=== PATIENT | female | born 1985 | race Caucasian/White ===

== ENCOUNTER 2021-11-14 14:46 | Inpatient (IN) ==
[2021-11-14] MEDS ORDERED: ONDANSETRON 4 MG/2 ML VIAL IV STA (15:20)
[2021-11-14] MEDS ORDERED: HYDROmorphone 1 MG/1 ML SYRINGE IV STA (15:20)
[2021-11-14] MEDS ORDERED: ONDANSETRON 4 MG/2 ML VIAL ONE ×2 (15:21→17:54)
[2021-11-14] MEDS ORDERED: HYDROmorphone 1 MG/1 ML SYRINGE ONE (15:22)
[2021-11-14] MEDS ORDERED: SODIUM CHLORIDE 0.9% 1,000 ML IV STA (15:57)
[2021-11-14] MEDS ORDERED: GLUCAGON 1 MG VIAL IM PRN ×2 (16:34→17:28)
[2021-11-14] MEDS ORDERED: DEXTROSE 10% 250 ML BAG IV PRN (16:34)
[2021-11-14 16:50] LABS: Bacteria,Urine Occasional /HPF (Few); Mucus,Urine Occasional /LPF (Occasional); RBC,Urine 11 /HPF (0-4); Squamous Epithelial Cell,Urine Occasional /HPF (0-10)
[2021-11-14 16:53] LABS: Bilirubin,Urine Negative (Negative); Blood, Urine Moderate mg/dL (Negative); Glucose,Urine (UA) 500 mg/dL (Negative); Ketones,Urine >=160 mg/dL (Negative); Nitrite,Urine Negative (Negative); Protein,Urine Negative (Negative); Urine Appearance Clear (Clear); Urine Color Yellow (Yellow); Urine Urobilinogen 0.2 eU/dL (<2.0)
[2021-11-14 17:05] LABS: Basophils # 0.1 10*3/uL (0.0-0.2); Basophils % 0.8 % (0.0-0.8); Hematocrit 40.1 VOL% (35.7-47.0); Immature Granulocytes % 0.5 %; Immature Granulocytes Absolute 0.07 #; Lymphocytes # 0.8 10*3/uL (1.4-4.0); Lymphocytes % 5.5 % (21.3-54.2); Mean Corpuscular HGB Conc 32.4 GM/DL (32-36); Mean Corpuscular Volume 87.9 FL (87-102); Monocytes # 0.4 10*3/uL (0.11-0.8); Monocytes % 3.1 % (1.7-12.7); Neutrophils % 90.1 % (38.7-73.9); Platelet Count 291 T/CUMM (130-400); Red Blood Count 4.56 MC/CUMM (3.8-5.5); Red Cell Distribution Width 13.2 % (9.3-17.3); White Blood Count 13.9 T/CUMM (4-12)
[2021-11-14] MEDS ORDERED: cefTRIAXone 1,000 MG in SODIUM CHLORIDE 0.9% 100 ML IV ONE (17:15)
[2021-11-14] MEDS ORDERED: KETOROLAC 30 MG/1 ML VIAL IV PRN (17:24)
[2021-11-14 17:27] LABS: Calcium 8.4 MG/DL (8.5-10.1); Osmolality,Calculated 282.4 MOS/KG (273-304); Potassium 4.1 MMOL/L (3.5-5.1)
[2021-11-14] MEDS: HYDROmorphone 1 MG/1 ML SYRINGE IV PRN ×2 (17:27→20:52)
[2021-11-14] MEDS ORDERED: DEXTROSE 50% 25 GM/50 ML VIAL IV PRN (17:28)
[2021-11-14] MEDS ORDERED: MIDAZOLAM 2 MG/2 ML VIAL ONE (17:54)
[2021-11-14] MEDS ORDERED: propofoL 200 MG/20 ML VIAL IV ONE (17:54)
[2021-11-14] MEDS ORDERED: fentaNYL 100 MCG/2 ML VIAL ONE (17:54)
[2021-11-14] MEDS ORDERED: SEVOFLURANE 1 UNIT/15 MINUTE INH ONE ×2 (17:54→18:20)
[2021-11-14] MEDS ORDERED: LIDOCAINE 2% 5 ML VIAL ONE (17:54)
[2021-11-14] MEDS ORDERED: SUCCINYLCHOLINE 200 MG/10 ML VIAL ONE (17:54)
[2021-11-14] MEDS ORDERED: ROCURONIUM 50 MG/5 ML VIAL IV ONE (17:59)
[2021-11-14 18:15] LABS: Barbiturates Screen,Urine Negative (Negative); Benzodiazepines Screen,Urine Negative (Negative); Cannabinoid Screen,Urine Positive (Negative); Opiate Screen,Urine Negative (Negative); Phencyclidine Screen,Urine Negative (Negative)
[2021-11-14] MEDS ORDERED: ceFAZolin 1,000 MG VIAL ONE (18:19)
[2021-11-14] MEDS ORDERED: PHENYLEPHRINE 1 MG/10 ML SYRINGE IV ONE ×3 (18:20→18:38)
[2021-11-14] MEDS ORDERED: ONDANSETRON 4 MG/2 ML VIAL IV PRN (18:45)
[2021-11-14] MEDS ORDERED: HYDROmorphone 1 MG/1 ML SYRINGE IV PRN (18:45)
[2021-11-14] MEDS ORDERED: INSULIN REGULAR 100 UNIT/ML ONE (18:56)
[2021-11-14] MEDS ORDERED: INSULIN REGULAR 100 UNIT/ML SUBCUT ONE (19:11)
[2021-11-14] MEDS: ALBUTEROL/IPRATROPIUM 3 ML NEB RESP TX SCH (19:15)
[2021-11-14 19:24] LABS: Bilirubin,Urine Negative (Negative); Blood, Urine Moderate mg/dL (Negative); Glucose,Urine (UA) 100 mg/dL (Negative); Ketones,Urine Trace mg/dL (Negative); Nitrite,Urine Negative (Negative); Protein,Urine Negative (Negative); RBC,Urine 22 /HPF (0-4); Urine Appearance Clear (Clear); Urine Color Yellow (Yellow); Urine Urobilinogen 0.2 eU/dL (<2.0); Urine pH 5.5 (4.5-8.0)
[2021-11-14] MEDS: ONDANSETRON 4 MG/2 ML VIAL IV PRN (20:50)
[2021-11-14] MEDS: AMITRIPTYLINE 50 MG TABLET PO SCH (20:58)
[2021-11-14] MEDS ORDERED: INSULIN GLARGINE 100 UNIT/ML SUBCUT SCH (21:00)
[2021-11-14] MEDS: methylPREDNISolone SOD SUC 40 MG/1 ML VIAL IV SCH (22:00)
[2021-11-14] MEDS: INSULIN REGULAR 100 UNIT/ML SUBCUT SCH (23:00)
[2021-11-14] MEDS: SODIUM CHLORIDE 0.9% 1,000 ML IV SCH (23:50)
[2021-11-15] MEDS ORDERED: METOCLOPRAMIDE 10 MG/2 ML VIAL IV ONE
[2021-11-15] MEDS: ALBUTEROL/IPRATROPIUM 3 ML NEB RESP TX SCH ×4 (00:47→18:56)
[2021-11-15] MEDS: INSULIN REGULAR 100 UNIT/ML SUBCUT SCH ×4 (01:38→12:51)
[2021-11-15] MEDS: methylPREDNISolone SOD SUC 40 MG/1 ML VIAL IV SCH ×2 (01:51→09:38)
[2021-11-15] MEDS: HYDROmorphone 1 MG/1 ML SYRINGE IV PRN ×2 (05:04→09:42)
[2021-11-15] MEDS: ONDANSETRON 4 MG/2 ML VIAL IV PRN ×3 (05:06→18:26)
[2021-11-15 05:53] LABS: Basophils % 0.2 % (0.0-0.8); Hematocrit 36.2 VOL% (35.7-47.0); Hemoglobin 11.9 GM/DL (12.0-16.0); Immature Granulocytes % 0.6 %; Immature Granulocytes Absolute 0.09 #; Lymphocytes # 0.7 10*3/uL (1.4-4.0); Mean Corpuscular HGB Conc 32.9 GM/DL (32-36); Mean Corpuscular Volume 86.8 FL (87-102); Mean Platelet Volume 10.4 FL (9.6-12.0); Monocytes # 0.3 10*3/uL (0.11-0.8); Monocytes % 1.7 % (1.7-12.7); Neutrophils % 92.5 % (38.7-73.9); Platelet Count 278 T/CUMM (130-400); Red Blood Count 4.17 MC/CUMM (3.8-5.5); Red Cell Distribution Width 13.5 % (9.3-17.3); White Blood Count 14.7 T/CUMM (4-12)
[2021-11-15 06:05] LABS: Calcium 8.4 MG/DL (8.5-10.1); Osmolality,Calculated 270.4 MOS/KG (273-304); Potassium 3.5 MMOL/L (3.5-5.1)
[2021-11-15 06:17] LABS: Band Neutrophils 4 % (0-10); Hypochromia Slight; Lymphocytes 8 % (20-55); Total Cells Counted 100
[2021-11-15 06:18] LABS: Microcytosis Slight
[2021-11-15] MEDS ORDERED: DEXTROSE 50% 25 GM/50 ML VIAL IV PRN (06:51)
[2021-11-15] MEDS: SODIUM CHLORIDE 0.9% 1,000 ML IV SCH ×3 (09:45→23:40)
[2021-11-15] MEDS ORDERED: predniSONE 20 MG TABLET PO ONE (11:00)
[2021-11-15] MEDS: MORPHINE 2 MG/1 ML SYRINGE IV PRN ×2 (15:49→20:23)
[2021-11-15] MEDS: INSULIN LISPRO 100 UNIT/ML SUBCUT SCH ×2 (17:44→20:27)
[2021-11-15] MEDS: AMITRIPTYLINE 50 MG TABLET PO SCH (20:25)
[2021-11-15] MEDS ORDERED: INSULIN GLARGINE 100 UNIT/ML SUBCUT SCH (21:00)
[2021-11-16] MEDS: ALBUTEROL/IPRATROPIUM 3 ML NEB RESP TX SCH ×4 (00:38→13:56)
[2021-11-16] MEDS: MORPHINE 2 MG/1 ML SYRINGE IV PRN ×2 (03:24→12:40)
[2021-11-16] MEDS: ONDANSETRON 4 MG/2 ML VIAL IV PRN ×2 (03:27→12:34)
[2021-11-16 06:06] LABS: Basophils % 0.2 % (0.0-0.8); Eosinophils % 0.2 % (0.00-10.9); Hematocrit 31.5 VOL% (35.7-47.0); Hemoglobin 10.1 GM/DL (12.0-16.0); Immature Granulocytes % 0.4 %; Immature Granulocytes Absolute 0.05 #; Lymphocytes # 1.4 10*3/uL (1.4-4.0); Lymphocytes % 12.3 % (21.3-54.2); Mean Corpuscular HGB Conc 32.1 GM/DL (32-36); Mean Platelet Volume 10.5 FL (9.6-12.0); Monocytes # 0.8 10*3/uL (0.11-0.8); Monocytes % 6.8 % (1.7-12.7); Neutrophils % 80.1 % (38.7-73.9); Platelet Count 224 T/CUMM (130-400); Red Blood Count 3.54 MC/CUMM (3.8-5.5); Red Cell Distribution Width 13.7 % (9.3-17.3); White Blood Count 11.7 T/CUMM (4-12)
[2021-11-16 06:17] LABS: Calcium 8.3 MG/DL (8.5-10.1); Osmolality,Calculated 277.7 MOS/KG (273-304); Potassium 3.1 MMOL/L (3.5-5.1)
[2021-11-16] MEDS ORDERED: PANTOPRAZOLE 40 MG TABLET PO SCH (06:30)
[2021-11-16] MEDS ORDERED: POTASSIUM CHLORIDE 20 MEQ TABLET PO ONE (09:00)
[2021-11-16] MEDS ORDERED: cefTRIAXone 1,000 MG in SODIUM CHLORIDE 0.9% 100 ML IV SCH (09:00)
[2021-11-16] MEDS ORDERED: predniSONE 20 MG TABLET PO ONE (09:00)
[2021-11-16] MEDS: INSULIN LISPRO 100 UNIT/ML SUBCUT SCH ×2 (09:14→12:41)
[2021-11-16] MEDS: SODIUM CHLORIDE 0.9% 1,000 ML IV SCH (11:00)
[2021-11-16 15:26] VITALS: BP 115/74
== END 2021-11-16 16:03 | disposition home or self-care (01) | DRG 659 ==
LOC: N.ED 14:46 → N.EDINP 14:46 → N.5E 17:30 → SUATTDRO 11-15 09:47
PROVIDERS: ADMIT Internal Medicine; ATTEND Internal Medicine Geriatric Medicine